=== PATIENT | male | born 1985 | race Caucasian/White ===

== ENCOUNTER 2019-12-30 11:01 | Outpatient (CLI) | payer OTHER ==
[2019-12-30 12:13] LABS: CLARITY,URINE CLEAR (Clear); GLUCOSE, URINE NEGATIVE (Neg); KETONES,URINE NEGATIVE (Neg); LEUKOCYTE ESTERASE ,URINE NEGATIVE (Neg); NITRITES, URINE NEGATIVE (Neg); OCCULT BLOOD,URINE NEGATIVE (Neg); PH,URINE 6.5 (4.8-8.0); PROTEIN,URINE NEGATIVE (Neg)
[2019-12-30 12:16] LABS: BASOPHILS # (AUTO) 0.1 X10'3 (0-0.2); BASOPHILS % (AUTO) 0.7 % (0-1); EOSINOPHILS # (AUTO) 0.8 X10'3 (0-0.9); EOSINOPHILS % (AUTO) 10.4 % (0-6); HEMATOCRIT 48.3 % (42.0-52.0); HEMOGLOBIN 16.4 g/dl (14.0-17.9); LYMPHOCYTES % (AUTO) 25.2 % (21-51); MEAN CORPUSCULAR VOLUME 88.3 FL (78-98); MEAN PLATELET VOLUME 8.3 FL (7.4-10.4); MONOCYTES # (AUTO) 0.6 X10'3 (0-0.9); MONOCYTES % (AUTO) 7.8 % (2-12); NEUTROPHILS # (AUTO) 4.5 X10'3 (1.8-7.7); NEUTROPHILS % (AUTO) 55.9 % (42-75); PLATELET COUNT 244 X10'3 (140-440); RED BLOOD COUNT 5.47 X10'6 (4.70-6.10); RED CELL DISTRIBUTION WIDTH 13.2 % (11.5-14.5)
[2019-12-30 12:25] LABS: COLOR,URINE DARK YELLOW (Yellow); UA COLLECTION TYPE CLN CATCH MIDSTREAM
[2019-12-30 12:46] LABS: ALANINE AMINOTRANSFERASE 33 U/L (12-78); ALBUMIN 4.3 G/DL (3.4-5.0); ALBUMIN/GLOBULIN RATIO 1.3 (1.1-1.5); ALKALINE PHOSPHATASE 80 IU/L (46-116); ANION GAP 5 (8-16); ASPARTATE AMINO TRANSFERASE 20 U/L (10-37); BILIRUBIN,TOTAL 0.5 MG/DL (0.1-1.0); BLOOD UREA NITROGEN 14 MG/DL (7-18); BUN/CREATININE RATIO 12.7 (5.4-32.0); CALCIUM 9.3 MG/DL (8.5-10.1); CHLORIDE 108 MMOL/L (99-107); CHOL/HDL RATIO 4.1 (0.00-4.99); CHOLESTEROL 182 MG/DL (0-200); GLUCOSE 64 MG/DL (70-104); HDL CHOLESTEROL 44 MG/DL (35-60); LDL CHOLESTEROL 121 MG/DL (50-100); SODIUM 144 MMOL/L (135-145); TOTAL CARBON DIOXIDE 31.2 MMOL/L (24-32); TOTAL PROTEIN 7.6 G/DL (6.4-8.2); TRIGLYCERIDES 128 MG/DL (20-135); eGFR 77 ML/MIN
== END 2019-12-30 23:59 | disposition home or self-care (01) ==
LOC: LAB 11:01
PROVIDERS: ATTEND Family Medicine
DX: Z00.00 Encounter for general adult medical examination without abnormal findings (principal)
CPT/HCPCS: 36415; 80053; 80061; 81003; 84439; 84443; 85025

== ENCOUNTER 2020-12-23 13:04 | Emergency (ER) | payer BC, OTHER ==
[~2020-12-23] VITALS: Ht 180.3 cm; Wt 94.6 kg
[2020-12-23] MEDS ORDERED: normal saline 1000ML IV soln IVB ONE (13:15)
[2020-12-23] MEDS ORDERED: HYDROmorphone inj. 0.5 MG/0.5 ML DISP.SYRIN IV PRN (13:15)
[2020-12-23] MEDS ORDERED: ondansetron/PF 4mg/2ml inj IV ONE (13:15)
[2020-12-23] MEDS ORDERED: ketorolac trometh. 30mg/ml inj. IV ONE (13:15)
[2020-12-23] MEDS ORDERED: HYDROmorphone 1 mg/ml syringe IV PRN (13:24)
[2020-12-23 13:34] LABS: BASOPHILS # (AUTO) 0.1 X10'3 (0-0.2); BASOPHILS % (AUTO) 0.7 % (0-1); EOSINOPHILS # (AUTO) 1.3 X10'3 (0-0.9); EOSINOPHILS % (AUTO) 13.5 % (0-6); HEMATOCRIT 47.5 % (42.0-52.0); LYMPHOCYTES % (AUTO) 30.3 % (21-51); MEAN CORPUSCULAR HEMOGLOBIN 29.6 PG (27.0-31.0); MEAN CORPUSCULAR HGB CONC 33.7 g/dL (33.0-36.5); MEAN CORPUSCULAR VOLUME 87.9 FL (78-98); MEAN PLATELET VOLUME 7.7 FL (7.4-10.4); MONOCYTES % (AUTO) 9.7 % (2-12); NEUTROPHILS # (AUTO) 4.5 X10'3 (1.8-7.7); NEUTROPHILS % (AUTO) 45.8 % (42-75); PLATELET COUNT 288 X10'3 (140-440); RED CELL DISTRIBUTION WIDTH 13.3 % (11.5-14.5); WHITE BLOOD COUNT 9.9 X10'3 (4.5-11.0)
[2020-12-23] MEDS ORDERED: KETO10TA2 PO (13:38)
[2020-12-23] MEDS ORDERED: HYDR-3965 PO (13:38)
[2020-12-23] MEDS ORDERED: ONDA4TAB6 PO (13:38)
[2020-12-23] MEDS ORDERED: TADA20TA PO (13:38)
[2020-12-23 13:51] LABS: ALANINE AMINOTRANSFERASE 31 U/L (12-78); ALBUMIN 4.1 G/DL (3.4-5.0); ALBUMIN/GLOBULIN RATIO 1.2 (1.1-1.5); ALKALINE PHOSPHATASE 106 IU/L (46-116); ANION GAP 11 (8-16); ASPARTATE AMINO TRANSFERASE 17 U/L (10-37); BILIRUBIN,TOTAL 0.4 MG/DL (0.1-1.0); BLOOD UREA NITROGEN 16 MG/DL (7-18); BUN/CREATININE RATIO 12.8 (5.4-32.0); CALCIUM 9.1 MG/DL (8.5-10.1); CHLORIDE 108 MMOL/L (99-107); CREATININE 1.25 MG/DL (0.60-1.10); GLUCOSE 81 MG/DL (70-104); LIPASE 92 U/L (73-393); POTASSIUM 3.1 MMOL/L (3.5-5.1); SODIUM 147 MMOL/L (135-145); TOTAL CARBON DIOXIDE 27.9 MMOL/L (24-32); TOTAL PROTEIN 7.4 G/DL (6.4-8.2); eGFR 66 ML/MIN
--- NOTE | 2020-12-23 13:52 | NUR ---
TO CT WITH TECH, PAIN 12/06 NOW, DENIES NEED FOR ADDITIONAL MEDICATION
[2020-12-23] MEDS ORDERED: potassium Cl 20 mEq SR tablet PO STA (13:54)
[2020-12-23 14:02] LABS: CLARITY,URINE CLEAR (Clear); COLOR,URINE YELLOW (Yellow); GLUCOSE, URINE NEGATIVE (Neg); KETONES,URINE NEGATIVE (Neg); LEUKOCYTE ESTERASE ,URINE NEGATIVE (Neg); NITRITES, URINE NEGATIVE (Neg); OCCULT BLOOD,URINE SMALL (Neg); PROTEIN,URINE NEGATIVE (Neg); UROBILINOGEN,URINE 0.2 E.U/dL (0.2-1.0)
[2020-12-23 14:05] LABS: UA COLLECTION TYPE CLN CATCH MIDSTREAM
[2020-12-23 14:07] LABS: BACTERIA,URINE NONE SEEN /HPF (Neg); MUCUS STRANDS FEW /LPF (Neg); SQUAMOUS EPITHELIAL CELL,UR FEW /LPF (FEW); WBC,URINE 0-4 /HPF (0-4)
[2020-12-23 14:17] VITALS: BP 141/92
[2020-12-23] MEDS ORDERED: METH-360 PO (14:31)
[2020-12-24] MEDS ORDERED: MONT5TAB14 PO (19:19)
== END 2020-12-23 14:51 | disposition home or self-care (01) ==
LOC: ER 13:05 → EEVIPCON 13:05 → ER 14:51
DX: M54.5 Low back pain (principal); R10.32 Left lower quadrant pain; E87.6 Hypokalemia; Z88.0 Allergy status to penicillin; Z79.899 Other long term (current) drug therapy
CPT/HCPCS: 36415; 74176; 80053; 81001; 83690; 85025; 96361; 96374; 96375; 99284; J1885; J2405; J7030

== ENCOUNTER 2020-12-24 18:13 | Inpatient (IN) | payer BC ==
[~2020-12-24] VITALS: Ht 180.3 cm; Wt 90.9 kg
[~2020-12-24 18:13] MED LIST: METH-360 PO
[2020-12-24] MEDS ORDERED: normal saline 1000ML IV soln IVB ONE ×2 (18:25→19:05)
[2020-12-24] MEDS ORDERED: diazepam inj 5 MG/ML inj. IV ONE (18:25)
[2020-12-24] MEDS ORDERED: ondansetron/PF 4mg/2ml inj IV ONE ×2 (18:25→18:45)
[2020-12-24] MEDS ORDERED: fentaNYL/PF 50MCG/1 ML 2ML syringe IV ONE ×2 (18:25→19:25)
[2020-12-24 19:06] LABS: BASOPHILS % (AUTO) 0.3 % (0-1); EOSINOPHILS # (AUTO) 0.3 X10'3 (0-0.9); EOSINOPHILS % (AUTO) 3.2 % (0-6); HEMOGLOBIN 14.9 g/dl (14.0-17.9); LYMPHOCYTES # (AUTO) 1.7 X10'3 (1.1-4.8); MEAN CORPUSCULAR HEMOGLOBIN 29.3 PG (27.0-31.0); MEAN CORPUSCULAR HGB CONC 33.9 g/dL (33.0-36.5); MEAN CORPUSCULAR VOLUME 86.5 FL (78-98); MEAN PLATELET VOLUME 7.8 FL (7.4-10.4); MONOCYTES # (AUTO) 0.8 X10'3 (0-0.9); MONOCYTES % (AUTO) 8.8 % (2-12); NEUTROPHILS # (AUTO) 6.7 X10'3 (1.8-7.7); NEUTROPHILS % (AUTO) 69.7 % (42-75); PLATELET COUNT 224 X10'3 (140-440); RED BLOOD COUNT 5.09 X10'6 (4.70-6.10); RED CELL DISTRIBUTION WIDTH 12.8 % (11.5-14.5); WHITE BLOOD COUNT 9.6 X10'3 (4.5-11.0)
[2020-12-24 19:18] LABS: ALANINE AMINOTRANSFERASE 27 U/L (12-78); ALBUMIN 3.5 G/DL (3.4-5.0); ALBUMIN/GLOBULIN RATIO 1.2 (1.1-1.5); ALKALINE PHOSPHATASE 82 IU/L (46-116); ANION GAP 8 (8-16); ASPARTATE AMINO TRANSFERASE 13 U/L (10-37); BILIRUBIN,TOTAL 0.6 MG/DL (0.1-1.0); BLOOD UREA NITROGEN 11 MG/DL (7-18); BUN/CREATININE RATIO 9.7 (5.4-32.0); CHLORIDE 108 MMOL/L (99-107); CREATININE 1.13 MG/DL (0.60-1.10); GLUCOSE 117 MG/DL (70-104); POTASSIUM 3.6 MMOL/L (3.5-5.1); SODIUM 142 MMOL/L (135-145); TOTAL CARBON DIOXIDE 25.9 MMOL/L (24-32); TOTAL PROTEIN 6.4 G/DL (6.4-8.2); eGFR 74 ML/MIN
[2020-12-24] MEDS ORDERED: MONT5TAB14 PO (19:19)
[2020-12-24] MEDS ORDERED: metoclopramide 5 mg/ml inj IV ONE (19:25)
[2020-12-24] MEDS ORDERED: LIDOCAINE 2% IV ONE (19:45)
[2020-12-24] MEDS ORDERED: WATER IV ONE (19:45)
[2020-12-24] MEDS ORDERED: CARDIAC IV ONE (19:45)
[2020-12-24] MEDS ORDERED: DEXTROSE 5% IV ONE (19:45)
[2020-12-24 21:01] LABS: COLOR,URINE YELLOW (Yellow); GLUCOSE, URINE NEGATIVE (Neg); KETONES,URINE NEGATIVE (Neg); LEUKOCYTE ESTERASE ,URINE NEGATIVE (Neg); NITRITES, URINE NEGATIVE (Neg); OCCULT BLOOD,URINE LARGE (Neg); PROTEIN,URINE NEGATIVE (Neg); UROBILINOGEN,URINE 0.2 E.U/dL (0.2-1.0)
[2020-12-24 21:11] LABS: CLARITY,URINE SLIGHTLY CLOUDY (Clear); UA COLLECTION TYPE CLN CATCH MIDSTREAM
[2020-12-24 21:12] LABS: BACTERIA,URINE FEW /HPF (Neg); RBC,URINE 50-100 /HPF (0-2); SQUAMOUS EPITHELIAL CELL,UR FEW /LPF (FEW); WBC,URINE NONE SEEN /HPF (0-4)
[2020-12-24] MEDS ORDERED: mag hydrox/Alum hydrox/simeth 30ml oral suspension PO PRN (22:35)
[2020-12-24] MEDS ORDERED: naloxone 0.4 mg/ml inj IV PRN (22:35)
[2020-12-24] MEDS ORDERED: magnesium hydroxide 30ml (MOM) UD suspension PO PRN (22:35)
[2020-12-24] MEDS ORDERED: CADD PCA waste documentation MC PRN (22:35)
[2020-12-24] MEDS ORDERED: potassium Cl 40MEQ/1/2NS 520ml 520 ML IV PRN ×2 (22:35)
[2020-12-24] MEDS ORDERED: acetaminophen 325mg tablet PO PRN (22:35)
[2020-12-24] MEDS ORDERED: potassium Cl 20 mEq SR tablet PO PRN (22:35)
[2020-12-24] MEDS ORDERED: HYDROmorphone inj. 0.5 MG/0.5 ML DISP.SYRIN IV PRN (22:35)
[2020-12-24 23:05] VITALS: BP 148/101
[2020-12-24] MEDS: normal saline 1000ml 1,000 ML IV SCH (23:19)
[2020-12-24] MEDS: HYDROmorphone/NS 1 mg/ml CADD 50 ML IV SCH (23:44)
[2020-12-25] MEDS: HYDROmorphone/NS 1 mg/ml CADD 50 ML IV SCH ×12 (01:00→23:00)
[2020-12-25] MEDS: ondansetron/PF 4mg/2ml inj IV PRN ×3 (03:20→19:31)
[2020-12-25 06:00] VITALS: BP 149/101
--- NOTE | 2020-12-25 06:00 | NUR ---
Patient in room ORTHO 4018. I have received report from Monae GRIMALDO and had the opportunity to ask questions and assume patient care.
--- NOTE | 2020-12-25 06:26 | NUR ---
Patient in room ORTHO 4018. I have received report from Monae GRIMALDO and had the opportunity to ask questions and assume patient care.
--- NOTE | 2020-12-25 06:30 | NUR ---
Patient in room ORTHO 4018. I have received report from DILLAN Licona and had the opportunity to ask questions and assume patient care. Jesus Alberto Shultz RN will provide care for pt. I will monitor and assist with all care.
[2020-12-25 07:49] LABS: BASOPHILS % (AUTO) 0.4 % (0-1); EOSINOPHILS # (AUTO) 0.5 X10'3 (0-0.9); EOSINOPHILS % (AUTO) 4.6 % (0-6); HEMATOCRIT 44.5 % (42.0-52.0); HEMOGLOBIN 14.8 g/dl (14.0-17.9); LYMPHOCYTES # (AUTO) 1.3 X10'3 (1.1-4.8); LYMPHOCYTES % (AUTO) 12.3 % (21-51); MEAN CORPUSCULAR HEMOGLOBIN 29.4 PG (27.0-31.0); MEAN CORPUSCULAR HGB CONC 33.2 g/dL (33.0-36.5); MEAN CORPUSCULAR VOLUME 88.3 FL (78-98); MEAN PLATELET VOLUME 7.9 FL (7.4-10.4); MONOCYTES # (AUTO) 0.8 X10'3 (0-0.9); MONOCYTES % (AUTO) 7.3 % (2-12); NEUTROPHILS # (AUTO) 7.9 X10'3 (1.8-7.7); NEUTROPHILS % (AUTO) 75.4 % (42-75); PLATELET COUNT 212 X10'3 (140-440); RED BLOOD COUNT 5.03 X10'6 (4.70-6.10); RED CELL DISTRIBUTION WIDTH 13.3 % (11.5-14.5); WHITE BLOOD COUNT 10.4 X10'3 (4.5-11.0)
[2020-12-25 08:05] LABS: ALANINE AMINOTRANSFERASE 29 U/L (12-78); ALBUMIN 3.6 G/DL (3.4-5.0); ALBUMIN/GLOBULIN RATIO 1.2 (1.1-1.5); ALKALINE PHOSPHATASE 81 IU/L (46-116); ANION GAP 7 (8-16); ASPARTATE AMINO TRANSFERASE 20 U/L (10-37); BILIRUBIN,TOTAL 0.6 MG/DL (0.1-1.0); BLOOD UREA NITROGEN 10 MG/DL (7-18); BUN/CREATININE RATIO 7.9 (5.4-32.0); CALCIUM 8.6 MG/DL (8.5-10.1); CHLORIDE 108 MMOL/L (99-107); CREATININE 1.26 MG/DL (0.60-1.10); GLUCOSE 80 MG/DL (70-104); POTASSIUM 3.3 MMOL/L (3.5-5.1); SODIUM 141 MMOL/L (135-145); TOTAL CARBON DIOXIDE 25.7 MMOL/L (24-32); TOTAL PROTEIN 6.6 G/DL (6.4-8.2); eGFR 66 ML/MIN
[2020-12-25] MEDS: montelukast 10mg tablet PO SCH (08:16)
[2020-12-25] MEDS: potassium Cl 20 mEq SR tablet PO PRN ×3 (08:17→21:03)
[2020-12-25] MEDS: K and/or MAG REPLACEMENT MC SCH ×2 (08:19→20:57)
[2020-12-25] MEDS: normal saline 1000ml 1,000 ML IV SCH ×2 (08:21→19:30)
[2020-12-25 10:00] VITALS: BP 143/92
[2020-12-25] MEDS: predniSONE 20 mg tablet PO SCH (11:54)
[2020-12-25] MEDS: ketorolac trometh. 30mg/ml inj. IV PRN ×2 (11:55→19:31)
--- NOTE | 2020-12-25 13:21 | NUR ---
Page Sent PAGER ID: [phone] MESSAGE: PAUL [id number]: [id number] OPAL RODRIGUEZ...RENAL U/S RESULTS ARE IN...
[2020-12-25] MEDS ORDERED: furosemide 40mg/4ml inj IV ONE (14:55)
--- NOTE | 2020-12-25 14:55 | NUR ---
Page Sent PAGER ID: [phone] MESSAGE: PAUL [id number]-RE: [id number] OPAL RODRIGUEZ... TRY TYPING IN ...NM RENAL...I TRIED CALLING [facility] WITH NO ANSWER
[2020-12-25 17:53] LABS: CLARITY,URINE CLEAR (Clear); COLOR,URINE YELLOW (Yellow); GLUCOSE, URINE NEGATIVE (Neg); KETONES,URINE 15 mg/dl (Neg); LEUKOCYTE ESTERASE ,URINE NEGATIVE (Neg); NITRITES, URINE NEGATIVE (Neg); OCCULT BLOOD,URINE LARGE (Neg); PH,URINE 6.5 (4.8-8.0); PROTEIN,URINE NEGATIVE (Neg); UROBILINOGEN,URINE 0.2 E.U/dL (0.2-1.0)
[2020-12-25 17:54] LABS: UA COLLECTION TYPE CLN CATCH MIDSTREAM
[2020-12-25 17:59] LABS: SQUAMOUS EPITHELIAL CELL,UR FEW /LPF (FEW)
[2020-12-25 18:00] VITALS: BP 149/86
[2020-12-25 18:00] LABS: BACTERIA,URINE 1+ /HPF (Neg); WBC,URINE 0-4 /HPF (0-4)
--- NOTE | 2020-12-25 18:30 | NUR ---
Student documentation: I have reviewed and agree with all interventions, assessments performed and documented by DILLAN DIEGO.
--- NOTE | 2020-12-25 18:31 | NUR ---
Problems reprioritized. Patient report given, questions answered & plan of care reviewed with Lorraine GRIMALDO .
[2020-12-25] MEDS ORDERED: acetaminophen 325mg tablet PO PRN (21:00)
[2020-12-25 21:30] VITALS: BP 133/78
--- NOTE | 2020-12-25 21:39 | NUR ---
strained urine - found two small black dots - soft - smeared blood. will continue to strain. VSS. tylenol for continued headache.
[2020-12-26] MEDS: HYDROmorphone/NS 1 mg/ml CADD 50 ML IV SCH ×6 (01:00→13:00)
[2020-12-26] MEDS: ketorolac trometh. 30mg/ml inj. IV PRN ×2 (01:46→13:00)
[2020-12-26] MEDS: normal saline 1000ml 1,000 ML IV SCH (05:30)
--- NOTE | 2020-12-26 05:55 | NUR ---
noted pt passed another small clot in urine. walked halls x1 loop. feeling better this am. declined shower.
--- NOTE | 2020-12-26 05:56 | NUR ---
pt declined 2 RN skin check.
[2020-12-26 06:00] VITALS: BP 152/101
--- NOTE | 2020-12-26 06:14 | NUR ---
reported to days. noted pt ready for renal nuc med test - possibly around 8am.
--- NOTE | 2020-12-26 06:24 | NUR ---
Patient in room ORTHO 4018. I have received report from Van GRIMALDO and had the opportunity to ask questions and assume patient care.
--- NOTE | 2020-12-26 06:39 | NUR ---
Patient in room ORTHO 4018. I have received report from DILLAN Alvarez and had the opportunity to ask questions and assume patient care. Claudia Shultz RN will provide care for pt, I will monitor all care and assist if needed. Addendum: 12/26/20 at 0644 by Mago Herbert RN report received from DILLAN Araujo
[2020-12-26 07:25] LABS: BASOPHILS % (AUTO) 0.2 % (0-1); EOSINOPHILS # (AUTO) 0.2 X10'3 (0-0.9); EOSINOPHILS % (AUTO) 2.2 % (0-6); HEMOGLOBIN 13.5 g/dl (14.0-17.9); LYMPHOCYTES # (AUTO) 1.7 X10'3 (1.1-4.8); LYMPHOCYTES % (AUTO) 15.7 % (21-51); MEAN CORPUSCULAR HEMOGLOBIN 29.5 PG (27.0-31.0); MEAN CORPUSCULAR HGB CONC 33.8 g/dL (33.0-36.5); MEAN CORPUSCULAR VOLUME 87.2 FL (78-98); MEAN PLATELET VOLUME 7.8 FL (7.4-10.4); MONOCYTES # (AUTO) 1.2 X10'3 (0-0.9); MONOCYTES % (AUTO) 10.6 % (2-12); NEUTROPHILS # (AUTO) 7.8 X10'3 (1.8-7.7); NEUTROPHILS % (AUTO) 71.3 % (42-75); PLATELET COUNT 188 X10'3 (140-440); RED BLOOD COUNT 4.59 X10'6 (4.70-6.10); RED CELL DISTRIBUTION WIDTH 12.9 % (11.5-14.5); WHITE BLOOD COUNT 10.9 X10'3 (4.5-11.0)
[2020-12-26] MEDS: K and/or MAG REPLACEMENT MC SCH (08:00)
[2020-12-26 08:10] LABS: ALANINE AMINOTRANSFERASE 24 U/L (12-78); ALKALINE PHOSPHATASE 65 IU/L (46-116); ANION GAP 5 (8-16); ASPARTATE AMINO TRANSFERASE 11 U/L (10-37); BILIRUBIN,TOTAL 0.5 MG/DL (0.1-1.0); BLOOD UREA NITROGEN 14 MG/DL (7-18); BUN/CREATININE RATIO 11.3 (5.4-32.0); CALCIUM 8.5 MG/DL (8.5-10.1); CHLORIDE 107 MMOL/L (99-107); CREATININE 1.24 MG/DL (0.60-1.10); GLUCOSE 93 MG/DL (70-104); POTASSIUM 3.7 MMOL/L (3.5-5.1); SODIUM 139 MMOL/L (135-145); TOTAL CARBON DIOXIDE 26.6 MMOL/L (24-32); eGFR 67 ML/MIN
[2020-12-26] MEDS: predniSONE 20 mg tablet PO SCH (09:15)
[2020-12-26] MEDS: montelukast 10mg tablet PO SCH (09:16)
[2020-12-26 10:00] VITALS: BP 147/96
[2020-12-26] MEDS ORDERED: LEVO500T89 PO (11:32)
[2020-12-26] MEDS ORDERED: HYDR-3972 PO (11:32)
[2020-12-26] MEDS ORDERED: FLO0.4C PO (11:32)
[2020-12-26] MEDS ORDERED: PRED20TA PO (11:32)
[2020-12-26] MEDS ORDERED: ONDA4TAB6 PO (12:36)
--- NOTE | 2020-12-26 13:31 | NUR ---
PT discharged at 1326. All questions/concerns asked and answered. IV removed no complications. Belongings sent with patient. Pt requested to walk down to private vehicle. Pt discharged in stable condition
--- NOTE | 2020-12-26 15:08 | NUR ---
Orientee documentation: I have reviewed and agree with all interventions, assessments performed and documented by DILLAN Shultz.
== END 2020-12-26 13:25 | disposition home or self-care (01) | DRG 696 ==
LOC: ER 18:13 → EEVIPCON 18:13 → ORTHO 4S 22:31
PROVIDERS: ADMIT Internal Medicine; ATTEND Family Medicine
PROC: CT131ZZ Planar Nuclear Medicine Imaging of Kidneys, Ureters and Bladder using Technetium 99m (Tc-99m) (ICD-10-PCS; principal; 2020-12-26)
DX: R31.29 Other microscopic hematuria (principal); J45.909 Unspecified asthma, uncomplicated; L30.9 Dermatitis, unspecified; D72.10 Eosinophilia, unspecified; Z88.0 Allergy status to penicillin; Z79.899 Other long term (current) drug therapy
CPT/HCPCS: 36415; 72148; 76775; 78708; 80053; 81001; 85025; 87081; 99285; A9562; G0378; J1170; J1885; J1940; J2405; J3010; J3360; J7030; J7512

== ENCOUNTER 2021-01-03 11:44 | Outpatient (CLI) | payer BC ==
[~2021-01-03 11:44] MED LIST changes: +FLO0.4C PO; +LEVO500T89 PO; +MONT5TAB14 PO; +ONDA4TAB6 PO; +PRED20TA PO
[2021-01-03 14:03] LABS: ALANINE AMINOTRANSFERASE 33 U/L (12-78); ALBUMIN 3.9 G/DL (3.4-5.0); ALBUMIN/GLOBULIN RATIO 1.2 (1.1-1.5); ALKALINE PHOSPHATASE 85 IU/L (46-116); ANION GAP 10 (8-16); ASPARTATE AMINO TRANSFERASE 11 U/L (10-37); BILIRUBIN,TOTAL 0.4 MG/DL (0.1-1.0); C-REACTIVE PROTEIN 0.22 MG/DL (0.0-0.5); CALCIUM 9.3 MG/DL (8.5-10.1); CHLORIDE 104 MMOL/L (99-107); CREATININE 0.93 MG/DL (0.60-1.10); GLUCOSE 96 MG/DL (70-104); POTASSIUM 3.5 MMOL/L (3.5-5.1); SODIUM 144 MMOL/L (135-145); TOTAL CARBON DIOXIDE 30.4 MMOL/L (24-32); TOTAL PROTEIN 7.2 G/DL (6.4-8.2); eGFR > 90 ML/MIN
[2021-01-03 14:04] LABS: BLOOD UREA NITROGEN 12 MG/DL (7-18)
[2021-01-03 14:28] LABS: BUN/CREATININE RATIO 12.9 (5.4-32.0); RHEUM FACTOR QUAL REFLEX TITER NEGATIVE (Neg)
== END 2021-01-03 23:59 | disposition home or self-care (01) ==
LOC: EEVIPCON 11:44 → LAB 11:44
PROVIDERS: ATTEND Family Medicine
DX: I10 Essential (primary) hypertension (principal)
CPT/HCPCS: 36415; 80053; 85651; 86038; 86140; 86430

== ENCOUNTER 2021-01-16 16:23 | Outpatient (CLI) | payer BC ==
[~2021-01-16 16:23] MED LIST changes: -LEVO500T89 PO
[2021-01-16 17:14] LABS: CLARITY,URINE CLEAR (Clear); COLOR,URINE YELLOW (Yellow); GLUCOSE, URINE NEGATIVE (Neg); KETONES,URINE NEGATIVE (Neg); LEUKOCYTE ESTERASE ,URINE NEGATIVE (Neg); NITRITES, URINE NEGATIVE (Neg); OCCULT BLOOD,URINE NEGATIVE (Neg); PROTEIN,URINE NEGATIVE (Neg)
[2021-01-16 17:25] LABS: ALBUMIN 4.1 G/DL (3.4-5.0); ANION GAP 9 (8-16); BLOOD UREA NITROGEN 19 MG/DL (7-18); BUN/CREATININE RATIO 21.1 (5.4-32.0); CALCIUM 9.3 MG/DL (8.5-10.1); CHLORIDE 105 MMOL/L (99-107); GLUCOSE 115 MG/DL (70-104); POTASSIUM 3.9 MMOL/L (3.5-5.1); SODIUM 142 MMOL/L (135-145); TOTAL CARBON DIOXIDE 28.3 MMOL/L (24-32); eGFR > 90 ML/MIN
[2021-01-16 17:48] LABS: UA COLLECTION TYPE NON-SPECIFIED
== END 2021-01-16 23:59 | disposition home or self-care (01) ==
LOC: LAB 16:23
PROVIDERS: ATTEND Student in an Organized Health Care Education/Training Program
DX: R31.0 Gross hematuria (principal); N23 Unspecified renal colic
CPT/HCPCS: 36415; 80048; 81003

== ENCOUNTER 2021-01-23 09:50 | Outpatient (CLI) | payer BC ==
[~2021-01-23 09:50] MED LIST changes: +iohexol 300mg/ml 100ml inj. ONE
== END 2021-01-23 23:59 | disposition home or self-care (01) ==
LOC: 64 CT 09:50
PROVIDERS: ATTEND Student in an Organized Health Care Education/Training Program
DX: K57.30 Diverticulosis of large intestine without perforation or abscess without bleeding (principal); N28.1 Cyst of kidney, acquired; K42.9 Umbilical hernia without obstruction or gangrene; J98.4 Other disorders of lung; I51.89 Other ill-defined heart diseases
CPT/HCPCS: 74178; Q9967